=== PATIENT | male | born 1930 | race Hispanic/Latino ===

== ENCOUNTER → 2020-10-24 | Day surgery (SDC) | payer MEDICARE ==
[2020-10-19 11:23] LABS: BASOPHILS % 0.5 % (0.0-1.0); EOSINOPHILS # (AUTO) 0.2 (0.0-0.4); EOSINOPHILS % 4.1 % (0.0-6.0); HEMATOCRIT 34.6 % (38.2-49.6); HEMOGLOBIN 10.8 g/dL (14.0-18.0); LYMPHOCYTES # (AUTO) 0.9 (1.0-3.2); LYMPHOCYTES % 15.6 % (18.0-39.1); MEAN CORPUSCULAR HEMOGLOBIN 28.3 pg (28-32); MEAN CORPUSCULAR HGB CONC 31.2 g/dL (31-35); MEAN CORPUSCULAR VOLUME 90.6 fL (81-99); MONOCYTES # (AUTO) 0.4 (0.2-0.8); NEUTROPHILS # (AUTO) 4.2 (2.1-6.9); NEUTROPHILS % 72.5 % (38.7-80.0); PLATELET COUNT 132 x10e3/uL (140-360); RED BLOOD COUNT 3.82 x10e6/uL (4.3-5.7); RED CELL DISTRIBUTION WIDTH 16.4 % (11.7-14.4)
[2020-10-19 11:40] LABS: ALBUMIN 3.4 g/dL (3.5-5.0); ALBUMIN/GLOBULIN RATIO 0.8 (0.8-2.0); CREATININE, SERUM 1.68 mg/dL (0.72-1.25)
[~2020-10-24] MED LIST: AMLODIPINE BESYL5 MG PO; ASPIRIN81 MG PO; B&O 60MG R/S 60 MG SUPP PR ONE; BUPIVACAINE 0.25% 30ML SDV ONE; CEFEPIME 1GM/NS 0.9% 50 ML 50 ML IV ONE; DEXAMETHASONE SOD PHOS INJ 4 MG/ML VIAL ONE; EPHEDRINE SULFATE INJ 50 MG/ML VIAL ONE; FLOMAX0.4 MG PO; IOPAMIDOL 300MG/ML 50ML INFUS..BTL IV ONE; LEVOTHYROXINE50 MCG PO; LIDOCAINE 1% W/EPINEPHRINE 20 ML VIAL ONE; LIDOCAINE HCL 2% LOCAL INJ 5 ML SDV VIAL INJ ONE; LIPITOR10 MG PO; METOLAZONE5 MG PO; NEOSTIGMINE 1 MG/ML 10ML VIAL ONE; ONDANSETRON HCL INJ 2MG/ML 2ML 2 MG/ML VIAL ONE; PHENYLEPHRINE HCL 1% 10 MG/ML VIAL ONE; PROBIOTIC & AC1 EACH PO; PROPOFOL IV EMULSION 10 MG/ML 20 ML VIAL ONE; PROPRANOLOL HCL40 MG PO; RAPAMUNE1 MG PO; SEVOFLURANE INHAL SOLN 250 ML PEN BTL ONE; VIT D2 PO
[2020-10-24 15:00] VITALS: BP 133/83
== END | disposition home or self-care (01) ==
LOC: OR 08:38 → EDSEX 11:00
PROVIDERS: ATTEND Urology
DX: C60.1 Malignant neoplasm of glans penis (principal); N47.7 Other inflammatory diseases of prepuce; N39.0 Urinary tract infection, site not specified; N35.919 Unspecified urethral stricture, male, unspecified site; Z98.890 Other specified postprocedural states; N32.89 Other specified disorders of bladder; I12.9 Hypertensive chronic kidney disease with stage 1 through stage 4 chronic kidney disease, or unspecified chronic kidney disease; N18.9 Chronic kidney disease, unspecified; I44.0 Atrioventricular block, first degree; Z94.4 Liver transplant status; H91.90 Unspecified hearing loss, unspecified ear; E78.5 Hyperlipidemia, unspecified; E03.9 Hypothyroidism, unspecified; B19.20 Unspecified viral hepatitis C without hepatic coma; K21.9 Gastro-esophageal reflux disease without esophagitis; Z01.810 Encounter for preprocedural cardiovascular examination; Z01.812 Encounter for preprocedural laboratory examination; Z01.818 Encounter for other preprocedural examination; Z20.822 Contact with and (suspected) exposure to COVID-19; Z79.82 Long term (current) use of aspirin; Z79.899 Other long term (current) drug therapy; Z86.73 Personal history of transient ischemic attack (TIA), and cerebral infarction without residual deficits
CPT/HCPCS: 36415; 52281; 54161; 55899; 71046; 74420; 80053; 85025; 88304; 88305; 88342; 93005; C1758; J0692; J1100; J2001; J2370; J2405; J2704; J2710; Q9967; U0002